=== PATIENT | female | born 2005 | race Two or more races ===

== ENCOUNTER 2024-02-18 10:32 | Outpatient (OUT) | payer OTHER, SELFPAY ==
[2024-02-18 11:03] LABS: Basophils Percent Auto 0.6 % (0.2-2.0); Eosinophils Absolute Auto 0.4 10^3/uL (0.0-0.7); Eosinophils Percent Auto 6.3 % (0.9-7.0); Hematocrit 42.1 % (36.0-48.0); Hemoglobin 14.4 g/dL (12.0-16.0); Immature Granulocytes Abs Auto 0.02 10^3/uL (0.00-0.03); Immature Granulocytes Pct Auto 0.3 % (0.0-0.5); Lymphocytes Absolute Auto 2.1 10^3/uL (1.2-3.8); Lymphocytes Percent Auto 32.5 % (20.5-60.0); Mean Corpuscular HGB Conc 34.2 g/dL (29.9-35.2); Mean Corpuscular Hemoglobin 30.9 pg (26.7-34.0); Mean Corpuscular Volume 90.3 fL (81.0-99.0); Mean Platelet Volume 10.8 fL (9.5-13.5); Monocytes Absolute Auto 0.6 10^3/uL (0.3-0.8); Monocytes Percent Auto 8.4 % (1.7-12.0); Neutrophils Absolute Auto 3.4 10^3/uL (1.4-6.5); Neutrophils Percent Auto 51.9 % (43.0-75.0); Platelet Count 292 10^3/uL (150-450); Red Blood Count 4.66 10^6/uL (4.20-5.40); Red Cell Distribution Width 12.6 % (11.0-15.0); White Blood Count 6.5 10^3/uL (4.0-11.0)
[2024-02-18 11:33] LABS: Percent Iron Saturation 44.1 %
[2024-02-18 11:37] LABS: Alanine Aminotransferase 38 U/L (14-59); Albumin Level 3.7 g/dL (3.4-5.0); Alkaline Phosphatase 75 U/L (46-116); Anion Gap 15.1; Aspartate Amino Transferase 30 U/L (15-37); BUN Creatinine Ratio 10.8; Bilirubin Total 0.6 mg/dL (0.2-1.0); Calcium 9.1 mg/dL (8.5-10.1); Carbon Dioxide 25.7 mmol/L (21.0-32.0); Chloride 103 mmol/L (98-107); Chol HDL Ratio 3.1; Cholesterol 239 mg/dL (<=200); Estimated GFR (African America >60 (>=60); Estimated GFR (Non-African Ame >60 (>=60); Globulin 3.6 g/dL; Glucose 88 mg/dL (74-106); HDL Cholesterol 78 mg/dL (40-60); Potassium 3.8 mmol/L (3.5-5.1); Sodium 140 mmol/L (136-145); TSH W/ REFLEX FT4 1.405 uIU/mL (0.358-3.740); Total Protein 7.3 g/dL (6.4-8.2); Triglycerides 72 mg/dL (<=150); VLDL CHOLESTEROL 14.4 mg/dL
== END 2024-02-18 10:33 | disposition home or self-care (01) ==
LOC: LAB 10:38
PROVIDERS: PCP Nurse Practitioner Family; Visit Provider Nurse Practitioner Family
DX: Z00.00 Encounter for general adult medical examination without abnormal findings (principal); R63.5 Abnormal weight gain; R53.83 Other fatigue; Z83.49 Family history of other endocrine, nutritional and metabolic diseases; Z13.220 Encounter for screening for lipoid disorders
CPT/HCPCS: 36415; 80053; 80061; 82306; 83540; 83550; 84443; 85025

== ENCOUNTER 2025-01-25 09:00 | Outpatient (OUT) | payer OTHER, SELFPAY ==
--- OUTSIDE RECORDS SUMMARY | 2025-01-25 04:47 | XMS_ITS | Continuity of Care Document ---
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 Name Role Phone Katherine Schofield APRN Primary Care Provider Katherine Schofield APRN Attending Provider Care Teams Patient Care Team Team Status: Active Member Role Status Dates Katherine Schofield APRN REPATCHER-C Primary Care Provider Active Visit Care Team Team Status: Inactive Member Role Status Dates Katherine Schofield APRN REPATCHER-C Primary Care Provider Active Start: December 21, 2024 End: December 21, 2024 Katherine Schofield APRN REPATCHER-C Attending Provider Act [place] Start: December 21, 2024 End: December 21, 2024 Patient Care Team Team Status: Inactive Member Role Status Dates Katherine Schofield APRN REPATCHER-C Primary Care Provider Active Start: January 25, 2025 End: January 25, 2025 Katherine Schofield APRN REPATCHERTuC Attending Provider Act [place] Start: January 25, 2025 End: January 25, 2025 Chief Complaint and Reason for Visit Chief Complaint Admit Date Control December 21, 2024 8:52 am knee pain January 25, 2025 8:18 am Reason for Visit Admit Date Class 1 obesity with body ma ss index (BMI) of 33.0 to 33.9 in adult December 21, 2024 8:52am Encounter for control December 21 8:52am Wellness examination December 21, 2024 8:5 2am Injury of left knee January 25, 2025 8:18 am Left knee pain January 25, 2025 8:18 am Allergies, Adverse Reactions, Alerts Allergen Type Severity Reaction Last Updated Verified Status No Known Allergies Allergy Unknown January 25, 2025 8:22a m Yes Active Social History Smoking Status Status Start Date End Date Date of Observa tion Never smoked tobacco (finding) February 15, 2024 1:11pm Observation Status Observation Response Date of Response Legal Sex Female (finding) Sex Assigned At Female 2005 Status N December 21, 2024 Problems Active Problems Medical Problem Onset Date Status Encounter for control Unknown Acti ve Fatigue Unknown Active Wellness examination Unknown Active Screening for lipid disorders Unknown Ac tive Weight gain Unknown Active Family history of thyroid disease Unknown Active BMI 31.0-31.9,adult Unknown Active Left knee pain Unknown Active Viral pharyngitis Unknown Active Class 1 obesity with body mass index (BMI) of 33 .0 to 33.9 in adult Unknown Active Injury of left knee Unknown Active Medications Medication Status Dose Units Route Directions Qty Days St art Date Stop Date End Date Instructions Adherence Amoxicillin 500 mg capsule Discont inued 500 MG PO Every 12 hours 20 2024 1:00am December 21, 2024 9:07a m Norelgestro min-Ethin.E stradiol (Xulane) 150-35 mcg/24 hr patch weekly Discont inued 1 PATCH TRANSD ERML every week February 15, 2024 12:00a m December 21, 2024 9:24a m apply once weekly for 3 weeks of a 4-week cycle Norelgestro min-Ethin.E stradiol (Xulane) 150-35 mcg/24 hr patch weekly Active 1 PATCH TRANSD ERML every week 9 90 December 21, 2024 9:09am apply once weekly for 3 weeks of a 4-week cycle Complies with drug therapy Vital Signs Vital Reading Result Reference Range Collection Date/Time Height 61 [in_i] December 21, 2024 9:01am Weight 81.19 kg December 21, 2024 9:01am Body Temperature 98.1 [degF] 97.6-99.0 December 21, 2024 9:01am Heart Rate 70 /min 60-100 December 21, 2024 9:01am Oxygen saturation by Pulse oximetry 98 % 95-100 December 21, 2024 9:01 am BP Systolic 118 mm[Hg] 100-140 December 21, 2024 9:01am BP Diastolic 64 mm[Hg] 60-100 December 21, 2024 9:01am BMI (Body Mass Index) 33.8 kg/m2 December 092024 9:01am Height 61 [in_i] January 25, 2025 8:23am Weight 82.10 kg January 25, 2025 8:23am Body Temperature 97.5 [degF] 97.6-99.0 January 25, 2025 8:23am Heart Rate 71 /min 60-100 January 25, 2025 8:23am Oxygen saturation by Pulse oximetry 98 % 95-100 January 25, 2025 8:23 am BP Systolic 106 mm[Hg] 100-140 January 25, 2025 8:23am BP Diastolic 62 mm[Hg] 60-100 January 25, 2025 8:23am BMI (Body Mass Index) 34.2 kg/m2 January 082024 8:23am Advance Directives Advance Directive Response Recorded Date/ Time Advance Directives No February 09 8:37am Insurance Providers Guarantor Estefani Carnes Address [address] [facility] [address] Contact Info. Home Phone: Payer Policy Id Subscriber's Name Subscriber Id Effectiv e Date Expiration Date [employer] [id number] Sandra carnes [id number] Encounters Encounter Location(s) Arrival/Admit Date Discharge/Depart Date Provider(s) Departed Physician/Prov ider Office Visit -[facility] December 21, 2024 8:52am December 21, 2024 9:21am Katherine Schofield APRN CNP Departed Physician/Prov ider Office Visit -[facility] January 25, 2025 8:18am January 25, 2025 8:46am Katherine Schofield APRN CNP Recent Diagnosis Onset Date Admit Date Class 1 obesity with body ma ss index (BMI) of 33.0 to 33.9 in adult Unknown December 21, 2024 8:52am Encounter for control Unknown December 21, 2024 8:52am Wellness examination Unknown December 21, 2024 8:52am Injury of left knee Unknown January 25, 2 025 8:18am Left knee pain Unknown January 25, 2025 8:18am Assessments Diagnosis Onset Date Resolution Status Admit Date Class 1 obesity with body ma ss index (BMI) of 33.0 to 33.9 in adult acute December 21, 2024 8:52am Encounter for control acute December 21, 2024 8:52am Wellness examination acute December 21, 2024 8:52am Injury of left knee acute January 25, 2025 8:18am Left knee pain acute January 25, 2025 8:18am Plan of Treatment Author [facility] Authored December 21, 2024 9:23 am Personalized health advice for screenings discussed and provided. Advanced care planning reviewed and/or information given as requested. Additional counseling was provided here today in regards to general topics regarding health education were discussed in detail. All preventative issues were discussed including remaining a nonsmoker, colorectal screening, the importance of proper sleep for brain health maintenance, maintaining a heart-healthy balanced diet, recognizing and addressing signs of anxiety and depression, maintaining positive relationships with family and friends. Doing well on BC patch. Denies any side effects. Has an appt with DIRECTOR ZONE on January 04 for initial PAP. Future Tests Future scheduled test information is unavailable Pending Tests Test Name Ordered Date Scheduled Date XR knee LT 4V* January 25, 2025 8:41am Future Visits Future appointment information is unavailable Referrals to Other Providers Referral information is unavailable Future Procedures Future procedure information is unavailable Future Medications Future medication information is unavailable Patient Instructions Patient instructions are unavailable
--- OUTSIDE RECORDS SUMMARY | 2025-01-25 09:09 | XMS_ITS | Clinical Summary ---
Author Organization [facility] [employer] [facility] tem Address [id number] [address] 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 Active Active Problems Problem Noted Date Diagnosed Date Uses control 01/04/2025 Encounters Date Type Department Care Team Description 01/04/2025 9:00 AM EDT Office Visit [facility]etrics[facility]necolog [facility] [address] [place] [address] Cassie Green, SECOND TIME WORKER-CNM Well woman exam with routine gynecological exam (Primary Dx); Pap smear, as part of routine gynecological examination; Screen for STD (sexually transmitted disease); Uses control 01/04/2025 Travel from Last 3 Months Family History Medical History Relation Name Comments Hyperthyroidism Father Breast cancer Maternal great-grandmother Colon cancer Neg Hx Ovarian cancer Neg Hx Relation Name Status Comments Father Alive Maternal great-grandmother Mother Alive Social History Tobacco Use Types Packs/Day Years Used Date Smoking Tobacco: Never Smokeless Tobacco: Never Tobacco Cessation:Counseling Given: Not Answered Alcohol Use Standard Drinks/Week Comments Yes 0 (1 standard drink = 0.6 oz pur e alcohol) occassionally PHQ-2 Answer Date Recorded Total Score 1 01/04/2025 Hunger Screening Answer Date Recorded Within the past 12 months we worried whether our food would run out before we got money to buy more. Never True 01/04/2025 Within the past 12 months th e food we bought just didn't last and we didn't have money to get more. Never True 01/04/2025 Comments No Sex and Gender Information Value Date Recorded Sex Assigned at Not on file Legal Sex Female 12:00 PM EDT Gender Identity Not on file Sexual Orientation Not on file Last Filed Vital Signs Vital Sign Reading Time Taken Comments Blood Pressure 110/76 01/04/2025 9:08 AM EDT Pulse - - Temperature - - Respiratory Rate - - Oxygen Saturation - - Inhaled Oxygen Concentration - - Weight 81.6 kg (179 lb 12.8 oz) 01/04/2025 9:08 AM EDT Height 154.9 cm (5' 1 ) 01/04/2025 9:08 AM EDT Body Mass Index 33.97 01/04/2025 9:08 AM EDT Plan of Treatment Health Maintenance Due Date Last Done Comments DTaP,Tdap and Td Vaccines (1 - Tdap) 2022 Influenza Vaccine 03/11/2025 Adult BMI Follow Up Plan 01/04/2026 01/04/2025 Adult BMI Screening 01/04/2026 01/04/2025 Chlamydia Screening 01/04/2026 01/04/2025 Depression Screening 01/04/2026 01/04/2025 Tobacco Screening 01/04/2026 01/04/2025 Pap Smear 01/05/2028 01/04/2025 Medical Devices Not on file Procedures Procedure Name Priority Date/Time Associated Diagnosis Comments THIN PREP PAP TEST Routine 01/04/2025 9: 52 AM EDT Pap smear, as part of routine gynecological examination CHLAMYDIA/GONORRHO EAE BY PCR, FLUID Routine 01/04/2025 9:52 AM EDT Pap smear, as part of routine gynecological examination from Last 3 Months Results * Chlamydia/Gonorrhoeae by PCR, Fluid (01/04/2025 9:52 AM EDT) CHLAMYDIA PCR, [place] Negative Negative 01/07/2025 11:29 AM EDT [facility] Comment:Chlamydia trachomati s not detected by nucleic acid amplification. This does not exclude the possibility of infection because results are dependent on adequate specimen collection. GONORRHOEAE PCR, [place] Negative Negative 01/07/2025 11:29 AM EDT [facility] Comment:Neisseria gonorrhoea e not detected by nucleic acid amplification. This does not exclude the possibility of infection because results are dependent on adequate specimen collection. ThinPrep cytology technique (qualifier value) (Cervix/Endocervi x) 01/04/2025 9:52 AM EDT 01/07/2025 3:29 AM EDT Cassie GUTIERREZ MICROBIOLOGY - GENERAL ORDERABLES Final Result [facility] [address] [place] [address], * Thin Prep Pap Test (01/04/2025 9:52 AM EDT) Case Report Gynecologic Cytology Report Case: [id number] Authorizing Provider: MATT Nathan Collected: 01/04/2025 0952 [facility] Received: 01/04/2025 0952 Obstetrics/Gy necology First Screen: JEMAL Quiroz(ASCP) Specimen: Thin Prep Pap, Cervix/Endocer vix 1:22 PM EDT [facility] Specimen Adequacy Satisfactory for evaluation, endocervical/t ransformation zone component absent 1:22 PM EDT [facility] Interpretation NEGATIVE FOR INTRAEPITHELIA L LESION OR MALIGNANCY NEGATIVE FOR INTRAEPITHELIA L LESION OR MALIGNANCY, UNSATISFACTORY , EPITHELIAL CELL ABNORMALITY, GLANDULAR EPITHELIAL CELL ABNORMALITY. , SQUAMOUS EPITHELIAL CELL ABNORMALITY, NO DIAGNOSIS RENDERED. 1:22 PM EDT [facility] at 1322 EDT Additional Information The Pap test is a screening test with an inherent, but low, probability of error. The Pap test is primarily effective for the diagnosis and prevention of squamous cell carcinoma. Regular screening is critical for prevention. ThinPrep liquid-based slides, which meet the [employer] criteria for automated screening, have been screened by the ThinPrep Imaging System (as of 03/27/07) along with an additional manual rescreening by a cytotechnologi st and, if indicated, by a pathologist. 5 1:22 PM EDT [facility] Clinical Information first pap today 5 1:22 PM EDT [facility] Embedded Images 5 1:22 PM EDT [facility] ThinPrep cytology technique (qualifier value) (Cervix/Endocervi x) 01/04/2025 9:52 AM EDT 01/04/2025 9:52 AM EDT us Cassie Green SECOND TIME WORKER-CN PATHOLOGY/CYTOLOGY ORD ERABLES Final Result [facility] [address] [place] [address], from Last 3 Months Insurance [employer] PPO
--- NOTE | 2025-01-25 09:17 | XR_ITS ---
[facility] [place] [id number] Patient Name: LITA MIXON MRN: [id number] date: 2005 Sex: F Assigned Patient Location: [facility] Current Patient Location: [facility] Accession/Order Number: [id number] Exam Date: 01/25/2025 10:17 Report Date: 01/25/2025 10:19 At the request of: JOSELIN MARTIN Procedure: XR knee LT 4V LEFT KNEE - 4 views COMPARISON: None CLINICAL DATA: Twisting injury of the knee 2 months ago with continued posterior pain. AP, lateral, internal oblique and patellar views were obtained. There is no acute fracture or dislocation. There is slight lateral patellar subluxation. There is no disproportionate joint space narrowing. There is minor squaring off of the articular margins. There is no significant knee effusion or soft tissue swelling. XR/XR knee LT 4V IMPRESSION: NO ACUTE BONY INJURY. Impression dictated by: Brittani Grant M.D. 01/25/2025 10:19 AM Dictation Location: [place] [address] Electronically authenticated by: [id number] Date: 01/25/2025 10:19
== END 2025-01-25 09:01 | disposition home or self-care (01) ==
LOC: RAD 09:06
PROVIDERS: PCP Nurse Practitioner Family; Visit Provider Nurse Practitioner Family
DX: M25.562 Pain in left knee (principal); S89.92XA Unspecified injury of left lower leg, initial encounter
CPT/HCPCS: 73564

== ENCOUNTER 2025-01-29 16:50 | Outpatient (RCR) | payer OTHER, SELFPAY | END 2025-02-27 07:28 | disposition home or self-care (01) | LOC: PT 16:50 | PROVIDERS: PCP Nurse Practitioner Family; Visit Provider Nurse Practitioner Family | DX: M25.562 Pain in left knee (principal); S89.92XD Unspecified injury of left lower leg, subsequent encounter | CPT/HCPCS: 97110; 97112; 97161 ==